=== PATIENT | male | born 1990 | race American Indian/Alaskan Native ===

== ENCOUNTER 2017-07-30 06:48 | Inpatient (IN) | payer OTHER ==
[2017-07-30 07:54] LABS: Hematocrit 25.9 % (35.5-45.6); Hemoglobin 8.1 gm/dl (11.8-15.2); Mean Corpuscular HGB Conc 31 % (32-34); Platelet Count 467 K/mm3 (140-440); Red Blood Count 3.79 M/mm3 (3.65-5.03)
[2017-07-30 07:55] LABS: Mean Corpuscular Volume 68 fl (84-94)
[2017-07-30 07:56] LABS: Mean Corpuscular Hemoglobin 22 pg (28-32); Red Cell Distribution Width 23.8 % (13.2-15.2)
[2017-07-30] MEDS ORDERED: NACL 0.9% 1000 ML 1,000 ML IV ONE ×3 (08:15→10:41)
[2017-07-30] MEDS ORDERED: VANCOMYCIN VIAL IV ONE (08:16)
[2017-07-30] MEDS ORDERED: TYLENOL PO ONE (08:16)
[2017-07-30 08:20] LABS: Alanine Aminotransferase 73 units/L (7-56); Albumin 1.9 g/dL (3.9-5); BUN/Creatinine Ratio 10; Blood Urea Nitrogen 4 mg/dL (9-20); Calcium 7.2 mg/dL (8.4-10.2); Hemolysis Index 25
--- NOTE | 2017-07-30 08:43 | XRay Report ---
AP CHEST: HISTORY: Fever AP view of the chest demonstrates a normal mediastinal and cardiac contour with clear lungs and normal bony and soft tissue structures. IMPRESSION: Unremarkable AP chest.
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
[2017-07-30] MEDS ORDERED: VANCOMYCIN PHARMACY TO DOSE IV SCH (09:00)
[2017-07-30 09:23] LABS: Band Neutrophils # (Manual) 1.2 K/mm3; Basophils % (Manual) 0 % (0.0-1.8); Eosinophils % (Manual) 0 % (0.0-4.3); Total Cells Counted 100
[2017-07-30 09:29] LABS: Anisocytosis 1+; Hypochromasia 1+; Target Cells 2+
[2017-07-30 09:30] LABS: Ovalocytes 2+
[2017-07-30] MEDS ORDERED: ZOSYN/NS 4.5GM/100ML 4.5 GM/100 ML VIAL IV ONE (10:00)
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
[2017-07-30] MEDS ORDERED: VANCOMYCIN 750 MG in NACL 0.9% 250ML 250 ML IV ONE (11:00)
[2017-07-30 11:04] LABS: Bacteria,Urine 2+ /HPF (Negative); Bilirubin,Urine NEG (Negative); Blood,Urine MOD (Negative); Color,Urine Yellow (Yellow); Protein,Urine <15 mg/dL mg/dL (Negative); Urobilinogen,Urine < 2.0 mg/dL (<2.0)
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
[2017-07-30] MEDS ORDERED: ZOFRAN IV PRN (12:44)
[2017-07-30] MEDS: NACL 0.9% 1000 ML 1,000 ML IV SCH (13:43)
[2017-07-30] MEDS: PROTONIX PO SCH (14:00)
[2017-07-30] MEDS ORDERED: ZOSYN/NS 4.5GM/100ML 4.5 GM/100 ML VIAL IV SCH (18:00)
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
[2017-07-30] MEDS: NORCO 5/325 PO PRN ×2 (20:28→23:05)
--- NOTE | 2017-07-30 20:37 | Cat Scan Report ---
FINAL REPORT EXAM: CT CHEST W CON HISTORY: sepsis TECHNIQUE: Standard enhanced CT of the chest at 2.5 mm axial increments. Coronal and sagittal reconstruction was also obtained. Contrast: 100 ml Omnipaque 300 given IV PRIORS: None. FINDINGS: The lung parenchyma are expanded and clear with no evidence for parenchymal nodules, infiltrates, vascular congestion, pleural effusion, or pneumothorax. There is no evidence for mediastinal, hilar, or axillary adenopathy. The esophagus is collapsed. The trachea is midline. Cardiovascular structures are within normal limits. Cardiac size and aorta are normal. Images through the lung bases include upper abdomen which show no abnormality of the visualized abdominal viscera. Bony structures show a 1.3 cm focal lucency involving the right pedicle of L1. This has a sclerotic well-defined border suggesting a benign entity. Hypertrophic facet joint changes to the left at L1-L2 are noted. No evidence for bony fracture is seen. IMPRESSION: 1. no acute abnormality identified in the chest. 2. Focal lucency involving the right pedicle of L1 with a well-defined sclerotic border. 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
--- NOTE | 2017-07-30 20:58 | Cat Scan Report ---
FINAL REPORT EXAM: CT ABDOMEN PELVIS W CON HISTORY: sepsis TECHNIQUE: Standard enhanced CT of the abdomen and pelvis. Coronal and sagittal reconstruction was also performed. Delayed imaging through the kidneys and bladder was obtained. Contrast: 100 mL Omnipaque 300 given IV. Oral contrast given PRIORS: None. FINDINGS: In the left femur, there is an intramedullary keyonna and screw in place. Numerous bubbles of air are present around the right hip joint which should be correlated clinically. If the surgery is recent, this may be postsurgical, however, otherwise, it is abnormal and infection should be considered. There is also air in the subcutaneous tissues posterior to the left ischial tuberosity. The underlying bony structure has erosion and cortical destruction suggesting osteomyelitis involving the inferior pubic ramus posteriorly (axial image 81). Findings may be consistent with a decubitus ulcer in this region. No well-defined abscess is seen. There is sclerotic bony deformity involving the posterior right acetabulum and inferior right pubic ramus which has a remote appearance. There is overlying air in the soft tissues and a skin irregularity overlying this region posteriorly. Findings suggest decubitus ulcer probable chronic or healed osteomyelitis of the underlying bony structures. No well-defined abscess is seen. Within the abdomen, the liver, spleen, pancreas, gallbladder, adrenal glands, and kidneys are unremarkable. No evidence for retroperitoneal or pelvic lymphadenopathy is seen. The small bowel loops have normal caliber. Oral contrast given is now seen throughout the colon, therefore excluding small-bowel obstruction. No soft tissue mass or free air is seen within the abdomen or pelvis. Within the pelvis, the bladder is collapsed containing a Chang catheter balloon. However, bladder wall thickness is still abnormal even given the collapsed state, measuring 1.4 cm in thickness. Findings suggest cystitis. The prostate is normal. No evidence for mass or lymphadenopathy is seen in the pelvis. There is a small amount of free low-density fluid in the presacral space. Images through the upper abdomen include the lung bases which are expanded and clear. Bony structures show a focal lucency at the L1 right pedicle. This has a well-defined sclerotic border and measures 1.3 cm in diameter. Its characteristics suggest a benign entity. Hypertrophic facet joint changes are present at the left side of L1-L2. IMPRESSION: 1. Bilateral decubitus ulcers overlying the ischial tuberosities. On the left, there is acute appearing erosion and cortical destruction of the posterior aspect of the left inferior pubic ramus. Findings suggest acute osteomyelitis. There is also air extending into the left hip joint. On the right, the underlying posterior acetabulum and right inferior pubic ramus have heavy sclerotic appearance suggesting a chronic or remote osteomyelitis. 2. Extensive thickening of the urinary bladder wall for which cystitis should be considered
[2017-07-30] MEDS: FLAGYL 500 MG/100 ML 500 MG/100 ML BAG IV SCH (21:30)
[2017-07-30] MEDS: VANCOMYCIN 750 MG in NACL 0.9% 250ML 250 ML IV SCH (22:35)
[2017-07-30] MEDS: MAXIPIME 2 GM in NACL 0.9% 20 ML IV SCH (22:35)
[2017-07-31] MEDS: TYLENOL PO PRN ×2 (00:22→16:46)
[2017-07-31] MEDS: NACL 0.9% 1000 ML 1,000 ML IV SCH ×2 (03:50→16:53)
[2017-07-31] MEDS: MAXIPIME 2 GM in NACL 0.9% 20 ML IV SCH ×3 (06:24→21:43)
[2017-07-31] MEDS: FLAGYL 500 MG/100 ML 500 MG/100 ML BAG IV SCH ×3 (06:24→22:10)
[2017-07-31 06:48] LABS: Hematocrit 23.6 % (35.5-45.6); Hemoglobin 7.4 gm/dl (11.8-15.2); Mean Corpuscular HGB Conc 31 % (32-34); Platelet Count 346 K/mm3 (140-440); Red Blood Count 3.49 M/mm3 (3.65-5.03)
[2017-07-31 06:49] LABS: Mean Corpuscular Hemoglobin 21 pg (28-32); Mean Corpuscular Volume 68 fl (84-94)
[2017-07-31 06:53] LABS: BUN/Creatinine Ratio 13; Blood Urea Nitrogen 4 mg/dL (9-20); Calcium 6.8 mg/dL (8.4-10.2); Hemolysis Index 1
[2017-07-31] MEDS: NORCO 5/325 PO PRN ×3 (08:16→17:46)
[2017-07-31] MEDS: PROTONIX PO SCH (09:39)
[2017-07-31] MEDS: VANCOMYCIN 750 MG in NACL 0.9% 250ML 250 ML IV SCH (11:16)
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
--- NOTE | 2017-07-31 17:14 | Progress Note ---
Assessment and Plan Assessment: 1) Sepsis: still high fever. Etiology most likely ischial decubiti infection. 2) Bilateral ischeal decubiti stage IV: likely infected -CT showed bilateral decubitus ulcers undertlying ischial tuberocites left with osteomyelitis and air extending to the left hip joint and right with chronic versus remote osteomyelitis. Extensive thickened urianry bladder/ 3) GNR bacteremia 4) Bacteriuria: UA very insignificant, Urine cx GNRs x 2 Plan: -surg eval for left ischial decubitus with osteomyelitis and air extending to the left hip joint +/- consider diverting colostomy - chronic wound non healing exposed to feces -follow-up initial blood cultures -repeat blood cx -obtain C-reactive protein (CRP) -continue cefepime and flagyl -add levaquin in view of persistent fever -continue vanco Pt to be seen on Wednesday Thank you for your consultation, will follow up with you. Tova Gorman MD Infectious Diseases Specialist [facility] ([facility] M [phone] O [phone] Subjective Date of service: 07/31/17 Principal diagnosis: sepsis Interval history: Feels the same, sick, still high fever. Microbiology: Blood cultures: 3/2 GNRs 1 of 4 Urine cultures: 3/2 GNRs x 2 Wound cx Gram stain +GPC and GNR Current Antimicrobials: Zosyn 3/2 Vancomycin 3/2 Previous Antimicrobials: Objective - Exam Narrative Exam: General appearance: Alert in NAD, conversant Eyes: anicteric sclerae, moist conjunctivae; no lid-lag; PERRLA HENT: Atraumatic; oropharynx Neck: Trachea midline; supple, no thyromegaly or lymphadenopathy Lungs: CTA CV: RRR, no murmurs Abdomen: Soft, non-tender; no masses or hepatosplenomegaly Extremities: contracted Skin: +susi ischial wounds see wound care note Psych: Appropriate affect, alert and oriented to person, place and time. Neuro: paraplegic Lines: No CVL / PICC - Constitutional Vitals: Vital Signs Temp Pulse Resp BP Pulse Ox 99.6 F 130 H 20 103/54 100 07/31/17 12:48 07/31/17 12:48 07/31/17 12:48 07/31/17 12:48 07/31/17 12:48 Temperature -Last 24 Hours Temperature 99.6 F Temperature 98.2 F Temperature 97.7 F Temperature 102.7 F - Labs CBC & Chem 7: 07/31/17 05:41 07/31/17 05:41 Labs: Abnormal lab results 07/31/17 07/31/17 Range/Units 05:41 05:41 WBC 14.6 H (4.5-11.0) K/mm3 RBC 3.49 L (3.65-5.03) M/mm3 Hgb 7.4 L (11.8-15.2) gm/dl Hct 23.6 L (35.5-45.6) % MCV 68 L (84-94) fl MCH 21 L (28-32) pg MCHC 31 L (32-34) % RDW 23.0 H (13.2-15.2) % Sodium 133 L (137-145) mmol/L Potassium 3.1 L (3.6-5.0) mmol/L BUN 4 L (9-20) mg/dL Creatinine 0.3 L (0.8-1.5) mg/dL Glucose 102 H (75-100) mg/dL Calcium 6.8 L (8.4-10.2) mg/dL
[2017-07-31] MEDS: LEVAQUIN 750MG/150ML 750 MG/150 ML BAG IV SCH (17:47)
[2017-07-31] MEDS ORDERED: NACL 0.9% 1000 ML 1,000 ML IV ONE (21:20)
[2017-07-31] MEDS: MORPHINE IV PRN (21:39)
[2017-07-31] MEDS ORDERED: LOPRESSOR IV ONE (22:11)
[2017-07-31] MEDS: VANCOMYCIN/0.45 NS 1 GM/250 ML 1 GM/250 ML BAG IV SCH (22:54)
[2017-08-01] MEDS: NORCO 5/325 PO PRN ×2 (01:02→22:08)
[2017-08-01] MEDS: TYLENOL PO PRN ×3 (01:03→20:58)
[2017-08-01] MEDS: FLAGYL 500 MG/100 ML 500 MG/100 ML BAG IV SCH ×4 (01:43→20:59)
[2017-08-01] MEDS: NACL 0.9% 1000 ML 1,000 ML IV SCH ×2 (02:56→12:40)
[2017-08-01] MEDS: MAXIPIME 2 GM in NACL 0.9% 20 ML IV SCH ×3 (05:31→20:59)
[2017-08-01] MEDS: MORPHINE IV PRN (05:31)
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
[2017-08-01 08:36] LABS: BUN/Creatinine Ratio 15; Blood Urea Nitrogen 6 mg/dL (9-20); Calcium 6.5 mg/dL (8.4-10.2); Hemolysis Index 31
[2017-08-01] MEDS ORDERED: TYLENOL PR PRN (09:44)
[2017-08-01 10:09] LABS: Hematocrit 22.9 % (35.5-45.6); Hemoglobin 7.1 gm/dl (11.8-15.2); Mean Corpuscular HGB Conc 31 % (32-34); Mean Corpuscular Hemoglobin 21 pg (28-32); Mean Corpuscular Volume 69 fl (84-94); Red Blood Count 3.31 M/mm3 (3.65-5.03); Red Cell Distribution Width 26.9 % (13.2-15.2)
[2017-08-01] MEDS: PROTONIX PO SCH (10:09)
[2017-08-01 10:52] LABS: Platelet Count 302 K/mm3 (140-440)
[2017-08-01] MEDS: VANCOMYCIN/0.45 NS 1 GM/250 ML 1 GM/250 ML BAG IV SCH ×2 (12:42→22:09)
[2017-08-01] MEDS ORDERED: NACL 0.9% 500 ML 500 ML IV SCH (13:22)
[2017-08-01] MEDS ORDERED: DIPRIVAN 10 MG/ML IV ONE (14:43)
[2017-08-01] MEDS ORDERED: DECADRON ONE (14:44)
[2017-08-01] MEDS ORDERED: SUBLIMAZE ONE (14:44)
[2017-08-01] MEDS ORDERED: VERSED ONE (14:44)
[2017-08-01] MEDS ORDERED: ZOFRAN ONE (14:44)
[2017-08-01] MEDS ORDERED: ROBINUL ONE ×2 (14:44→16:34)
[2017-08-01] MEDS ORDERED: XYLOCAINE CARDIAC IV ONE (14:44)
--- NOTE | 2017-08-01 15:06 | Anesthesia Day of Surgery ---
Anesthesia Day of Surgery - Day of Surgery Patient Examined: Yes Patient H&P Reviewed: Yes Patient is NPO: Yes
--- NOTE | 2017-08-01 15:06 | Anesthesia Consultation ---
Anesthesia Consult and Med Hx Date of service: 08/01/17 - Airway Anesthetic Teeth Evaluation: Good ROM Head & Neck: Adequate Mental/Hyoid Distance: Adequate Mallampati Class: Class II Intubation Access Assessment: Probably Good - Pulmonary Exam CTA: Yes - Cardiac Exam Cardiac Exam: RRR - Pre-Operative Health Status ASA Pre-Surgery Classification: ASA3 Proposed Anesthetic Plan: General (prone position. ETT. no succinylsholine) - Central Nervous System Hx Seizures: Yes
[2017-08-01] MEDS ORDERED: NACL 0.9% 500 ML 500 ML ONE (15:11)
[2017-08-01] MEDS ORDERED: KEPPRA 500 MG/NS 0.82% 100 ML 500 MG/100 ML BAG IV ONE (15:24)
[2017-08-01] MEDS ORDERED: NACL 0.9% IR ONE (15:31)
[2017-08-01] MEDS ORDERED: ALBUTEIN IV ONE (15:54)
--- NOTE | 2017-08-01 16:32 | Post Operative Note ---
Pre-op diagnosis: Left hip abscess Post-op diagnosis: same Findings: I&D of left hip abscess Anesthesia: AMEENAA Surgeon: SIMRAN CERVANTES Estimated blood loss: minimal Pathology: list (Gram stain and C&S) Specimen disposition: to lab Condition: stable Disposition: PACU
[2017-08-01] MEDS ORDERED: NEOSTIGMINE ONE (16:34)
[2017-08-01] MEDS ORDERED: NEO SYNEPHRINE/NS Syringe(OR USE) IV ONE (16:34)
[2017-08-01] MEDS: LEVAQUIN 750MG/150ML 750 MG/150 ML BAG IV SCH (16:55)
--- NOTE | 2017-08-01 17:02 | Post Anesthesia Evaluation ---
- Post Anesthesia Evaluation Patient Participated: Yes Airway Patent: Yes Stable Respiratory Function: Yes Nausea/Vomiting: No Temp > 96.8F: Yes Pain Manageable: Yes Adequeate Hydration: Yes Anesthesia Complications: No Block Receding Appropriately: Not Applicable Patient on Ventilator: No
[2017-08-01] MEDS ORDERED: BREVIBLOC IV ONE (17:05)
[2017-08-02] MEDS: NORCO 5/325 PO PRN ×3 (05:18→13:21)
[2017-08-02] MEDS: MAXIPIME 2 GM in NACL 0.9% 20 ML IV SCH ×3 (05:20→20:57)
[2017-08-02] MEDS: FLAGYL 500 MG/100 ML 500 MG/100 ML BAG IV SCH ×3 (05:21→21:07)
[2017-08-02] MEDS: NACL 0.9% 1000 ML 1,000 ML IV SCH ×2 (05:31→20:57)
[2017-08-02 06:57] LABS: Hematocrit 30.6 % (35.5-45.6); Hemoglobin 9.8 gm/dl (11.8-15.2); Mean Corpuscular HGB Conc 32 % (32-34); Mean Corpuscular Volume 71 fl (84-94); Platelet Count 107 K/mm3 (140-440)
[2017-08-02 07:02] LABS: BUN/Creatinine Ratio 23; Blood Urea Nitrogen 7 mg/dL (9-20); Calcium 6.7 mg/dL (8.4-10.2); Hemolysis Index 1
[2017-08-02 07:08] LABS: Mean Corpuscular Hemoglobin 23 pg (28-32); Red Cell Distribution Width 24.8 % (13.2-15.2)
[2017-08-02] MEDS: PROTONIX PO SCH (09:16)
[2017-08-02] MEDS: VANCOMYCIN/0.45 NS 1 GM/250 ML 1 GM/250 ML BAG IV SCH (10:03)
--- NOTE | 2017-08-02 11:11 | Progress Note ---
Assessment and Plan Assessment: 1) Sepsis: still high fever. Etiology most likely ischial decubiti infection. 2) Bilateral ischeal decubiti stage IV: likely infected L>R with left ischial osteomyelitis and air extending to the left hip joint -CT showed bilateral decubitus ulcers undertlying ischial tuberocites left with osteomyelitis and air extending to the left hip joint and right with chronic versus remote osteomyelitis. Extensive thickened urianry bladder/ -S/P OR I+D on 08/01 -CRP=25 3) E coli bacteremia - likely from left ischial wound > UTI 4) Bacteriuria: UA very insignificant, Urine cx GNRs x 2 Plan: -consider diverting colostomy - chronic wound non healing exposed to feces - will ask surgery -follow-up reepat blood cultures -continue cefepime and flagyl -stop levaquin and vanco Thank you for your consultation, will follow up with you. Tova Gorman MD Infectious Diseases Specialist [facility] ([facility]) M [phone] O [phone] Subjective Date of service: 08/02/17 Principal diagnosis: sepsis Interval history: Feels better, no fever tmax 98.5 Microbiology: Blood cultures: 3/2 Ecoli 1 of 4 3/4 ngtd Urine cultures: 3/2 E coli x 2 Wound cx GNRs x 3 Current Antimicrobials: Zosyn 3/2 Vancomycin 3/2 Previous Antimicrobials: Objective - Exam Narrative Exam: General appearance: Alert in NAD, conversant Eyes: anicteric sclerae, moist conjunctivae; no lid-lag; PERRLA HENT: Atraumatic; oropharynx Neck: Trachea midline; supple, no thyromegaly or lymphadenopathy Lungs: CTA CV: RRR, no murmurs Abdomen: Soft, non-tender; no masses or hepatosplenomegaly Extremities: contracted Skin: +susi ischial wounds see wound care note Psych: Appropriate affect, alert and oriented to person, place and time. Neuro: paraplegic Lines: No CVL / PICC - Constitutional Vitals: Vital Signs Temp Pulse Resp BP Pulse Ox 97.4 F L 98 H 17 95/62 100 08/02/17 04:18 08/02/17 04:18 08/02/17 04:18 08/02/17 04:18 03/05/18 04:18 Temperature -Last 24 Hours Temperature 97.4 F Temperature 98.5 F Temperature 98.5 F Temperature 97.4 F Temperature 97.8 F Temperature 98 F Temperature 98 F Temperature 97.8 F Temperature 97.6 F Temperature 97.8 F Temperature 98.4 F Temperature 99.4 F - Labs CBC & Chem 7: 08/02/17 06:15 08/02/17 06:15 Labs: Abnormal lab results 08/01/17 08/02/17 08/02/17 Range/Units 13:18 06:15 06:15 WBC 18.9 H (4.5-11.0) K/mm3 Hgb 9.8 L (11.8-15.2) gm/dl Hct 30.6 L D (35.5-45.6) % MCV 71 L (84-94) fl MCH 23 L (28-32) pg RDW 24.8 H (13.2-15.2) % Plt Count 107 L (140-440) K/mm3 Potassium 3.5 L (3.6-5.0) mmol/L Carbon Dioxide 21 L (22-30) mmol/L BUN 7 L (9-20) mg/dL Creatinine 0.3 L (0.8-1.5) mg/dL Glucose 146 H (75-100) mg/dL Calcium 6.7 L (8.4-10.2) mg/dL Crossmatch See Detail
[2017-08-02] MEDS ORDERED: K-DUR PO ONE (15:19)
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
[2017-08-02] MEDS: MORPHINE IV PRN ×2 (16:30→22:24)
[2017-08-03] MEDS: NORCO 5/325 PO PRN ×4 (02:25→22:00)
[2017-08-03] MEDS: MORPHINE IV PRN ×3 (04:19→19:59)
[2017-08-03] MEDS: FLAGYL 500 MG/100 ML 500 MG/100 ML BAG IV SCH ×3 (05:23→21:51)
[2017-08-03] MEDS: MAXIPIME 2 GM in NACL 0.9% 20 ML IV SCH ×3 (05:23→21:50)
[2017-08-03 07:13] LABS: Hemoglobin 8.7 gm/dl (11.8-15.2); Mean Corpuscular HGB Conc 32 % (32-34); Mean Corpuscular Volume 71 fl (84-94); Red Blood Count 3.81 M/mm3 (3.65-5.03)
[2017-08-03 07:16] LABS: Mean Corpuscular Hemoglobin 23 pg (28-32); Red Cell Distribution Width 24.7 % (13.2-15.2)
[2017-08-03 07:17] LABS: Platelet Count 57 K/mm3 (140-440)
[2017-08-03 08:03] LABS: BUN/Creatinine Ratio 23; Blood Urea Nitrogen 7 mg/dL (9-20); Calcium 6.6 mg/dL (8.4-10.2); Hemolysis Index 2
[2017-08-03] MEDS: PROTONIX PO SCH (09:00)
--- NOTE | 2017-08-03 09:34 | Progress Note ---
Assessment and Plan Assessment: 1) Sepsis: still leukocytosis, fever resolved. Etiology most likely ischial decubiti infection. 2) Bilateral ischeal decubiti stage IV: likely infected L>R with left ischial osteomyelitis and air extending to the left hip joint -CT showed bilateral decubitus ulcers undertlying ischial tuberocites left with osteomyelitis and air extending to the left hip joint and right with chronic versus remote osteomyelitis. Extensive thickened urianry bladder/ -S/P OR I+D on 08/01 -CRP=25 3) E coli bacteremia - likely from left ischial wound > UTI 4) Bacteriuria with a chronic indwelling cath: UA very insignificant, Urine cx GNRs x 2 Plan: -consider diverting colostomy - chronic wound non healing exposed to feces - will ask surgery -continue cefepime and flagyl - day 5 -place a PICC line -needs IV abx for 6 weeks - will order preliminary - cefepime 2 g IV q8h total 6 weeks until 09/11/17. May need to be adjusted once cultures available. Thank you for your consultation, will follow up with you. Tova Gorman MD Infectious Diseases Specialist [facility] [phone] O [phone] Subjective Date of service: 08/03/17 Principal diagnosis: sepsis Interval history: Feels better, no fever Microbiology: Blood cultures: 3/2 Ecoli 1 of 4 3/4 ngtd Urine cultures: 3/2 E coli x 2 Wound cx GNRs x 3 Current Antimicrobials: cefepime 3/2 flagyl 3/2 Previous Antimicrobials: Vancomycin 3/2 Zosyn 3/2 Objective - Exam Narrative Exam: General appearance: Alert in NAD, conversant Eyes: anicteric sclerae, moist conjunctivae; no lid-lag; PERRLA HENT: Atraumatic; oropharynx Neck: Trachea midline; supple, no thyromegaly or lymphadenopathy Lungs: CTA CV: RRR, no murmurs Abdomen: Soft, non-tender; no masses or hepatosplenomegaly Extremities: contracted Skin: +susi ischial wounds see wound care note Psych: Appropriate affect, alert and oriented to person, place and time. Neuro: paraplegic Lines: No CVL / PICC - Constitutional Vitals: Vital Signs Temp Pulse Resp BP Pulse Ox 98.5 F 89 20 105/68 100 08/03/17 07:16 08/03/17 07:16 08/03/17 07:16 08/03/17 07:16 08/03/17 07:16 Temperature -Last 24 Hours Temperature 98.5 F Temperature 97.5 F Temperature 98.4 F Temperature 98.7 F Temperature 99.6 F Temperature 98.1 F - Labs CBC & Chem 7: 08/03/17 04:51 08/03/17 04:51 Labs: Abnormal lab results 08/01/17 08/03/17 08/03/17 Range/Units 13:18 04:51 04:51 WBC 17.0 H (4.5-11.0) K/mm3 Hgb 8.7 L (11.8-15.2) gm/dl Hct 27.0 L (35.5-45.6) % MCV 71 L (84-94) fl MCH 23 L (28-32) pg RDW 24.7 H (13.2-15.2) % Plt Count 57 L (140-440) K/mm3 Potassium 3.4 L (3.6-5.0) mmol/L BUN 7 L (9-20) mg/dL Creatinine 0.3 L (0.8-1.5) mg/dL Calcium 6.6 L (8.4-10.2) mg/dL Crossmatch See Detail
--- NOTE | 2017-08-03 11:13 | Progress Note ---
Assessment and Plan Assessment and plan: Sepsis. Etiology most likely ischial decubiti infection. Bilateral ischeal decubiti stage IV. 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 Extensive thickened urianry bladder. Pt. S /P OR I+D on 08/01. Consider diverting colostomy - chronic wound non healing exposed to feces. Surgery eval. E coli bacteremia - likely from left ischial wound > UTI Bacteriuria with a chronic indwelling cath: UA very insignificant, Urine cx GNRs x 2 Disposition. LTAC eval. I d/w CM History Interval history: No new issues Hospitalist Physical - Constitutional Vitals: Temp Pulse Resp BP Pulse Ox 98.5 F 89 20 105/68 100 08/03/17 07:16 08/03/17 07:16 08/03/17 07:16 08/03/17 07:16 08/03/17 07:16 General appearance: Present: no acute distress, well-nourished - EENT Eyes: Present: PERRL, EOM intact ENT: hearing intact, clear oral mucosa, dentition normal - Neck Neck: Present: supple, normal ROM - Respiratory Respiratory effort: normal Respiratory: bilateral: CTA - Cardiovascular Rhythm: regular Heart Sounds: Present: S1 & S2. Absent: gallop, rub - Extremities Extremities: no ischemia, No edema, Full ROM - Abdominal General gastrointestinal: soft, non-tender, non-distended, normal bowel sounds - Integumentary Integumentary: Present: clear, warm, dry - Neurologic Neurologic: CNII-XII intact, moves all extremities Results - Labs CBC & Chem 7: 08/03/17 04:51 08/03/17 04:51 Labs: Laboratory Last Values WBC 17.0 K/mm3 (4.5-11.0) H 08/03/17 04:51 RBC 3.81 M/mm3 (3.65-5.03) 08/03/17 04:51 Hgb 8.7 gm/dl (11.8-15.2) L 08/03/17 04:51 Hct 27.0 % (35.5-45.6) L 08/03/17 04:51 MCV 71 fl (84-94) L 08/03/17 04:51 MCH 23 pg (28-32) L 08/03/17 04:51 MCHC 32 % (32-34) 08/03/17 04:51 RDW 24.7 % (13.2-15.2) H 08/03/17 04:51 Plt Count 57 K/mm3 (140-440) L 08/03/17 04:51 Add Manual Diff Complete 07/30/17 07:31 Total Counted 100 07/30/17 07:31 Seg Neuts % (Manual) 89.0 % (40.0-70.0) H 07/30/17 07:31 Band Neutrophils % 8.0 % 07/30/17 07:31 Lymphocytes % (Manual) 1.0 % (13.4-35.0) L 07/30/17 07:31 Reactive Lymphs % (Man) 0 % 07/30/17 07:31 Monocytes % (Manual) 1.0 % (0.0-7.3) 07/30/17 07:31 Eosinophils % (Manual) 0 % (0.0-4.3) 07/30/17 07:31 Basophils % (Manual) 0 % (0.0-1.8) 07/30/17 07:31 Metamyelocytes % 1.0 % 07/30/17 07:31 Myelocytes % 0 % 07/30/17 07:31 Promyelocytes % 0 % 07/30/17 07:31 Blast Cells % 0 % 07/30/17 07:31 Nucleated RBC % Not Reportable 07/30/17 07:31 Seg Neutrophils # Man 12.9 K/mm3 (1.8-7.7) H 07/30/17 07:31 Band Neutrophils # 1.2 K/mm3 07/30/17 07:31 Lymphocytes # (Manual) 0.1 K/mm3 (1.2-5.4) L 07/30/17 07:31 Abs React Lymphs (Man) 0.0 K/mm3 07/30/17 07:31 Monocytes # (Manual) 0.1 K/mm3 (0.0-0.8) 07/30/17 07:31 Eosinophils # (Manual) 0.0 K/mm3 (0.0-0.4) 07/30/17 07:31 Basophils # (Manual) 0.0 K/mm3 (0.0-0.1) 07/30/17 07:31 Metamyelocytes # 0.1 K/mm3 07/30/17 07:31 Myelocytes # 0.0 K/mm3 07/30/17 07:31 Promyelocytes # 0.0 K/mm3 07/30/17 07:31 Blast Cells # 0.0 K/mm3 07/30/17 07:31 WBC Morphology Not Reportable 07/30/17 07:31 Hypersegmented Neuts Not Reportable 07/30/17 07:31 Hyposegmented Neuts Not Reportable 07/30/17 07:31 Hypogranular Neuts Not Reportable 07/30/17 07:31 Smudge Cells Not Reportable 07/30/17 07:31 Toxic Granulation Not Reportable 07/30/17 07:31 Toxic Vacuolation Not Reportable 07/30/17 07:31 Dohle Bodies Not Reportable 07/30/17 07:31 Pelger-Huet Anomaly Not Reportable 07/30/17 07:31 Shantel Rods Not Reportable 07/30/17 07:31 Platelet Estimate Appears normal 07/30/17 07:31 Clumped Platelets Not Reportable 07/30/17 07:31 Plt Clumps, EDTA Not Reportable 07/30/17 07:31 Large Platelets Not Reportable 07/30/17 07:31 Giant Platelets Not Reportable 07/30/17 07:31 Platelet Satelliting Not Reportable 07/30/17 07:31 Plt Morphology Comment Not Reportable 07/30/17 07:31 RBC Morphology Not Reportable 07/30/17 07:31 Dimorphic RBCs Not Reportable 07/30/17 07:31 Polychromasia Not Reportable 07/30/17 07:31 Hypochromasia 1+ 07/30/17 07:31 Poikilocytosis Not Reportable 07/30/17 07:31 Anisocytosis 1+ 07/30/17 07:31 Microcytosis 1+ 07/30/17 07:31 Macrocytosis Not Reportable 07/30/17 07:31 Spherocytes Not Reportable 07/30/17 07:31 Pappenheimer Bodies Not Reportable 07/30/17 07:31 Sickle Cells Not Reportable 07/30/17 07:31 Target Cells 2+ 07/30/17 07:31 Tear Drop Cells Not Reportable 07/30/17 07:31 Ovalocytes 2+ 07/30/17 07:31 Helmet Cells Not Reportable 07/30/17 07:31 De La Rosa-[place] Bodies Not Reportable 07/30/17 07:31 [place] Rings Not Reportable 07/30/17 07:31 Hailey Cells Not Reportable 07/30/17 07:31 Bite Cells Not Reportable 07/30/17 07:31 Crenated Cell Not Reportable 07/30/17 07:31 Elliptocytes Few 07/30/17 07:31 Acanthocytes (Spur) Not Reportable 07/30/17 07:31 Rouleaux Not Reportable 07/30/17 07:31 Hemoglobin C Crystals Not Reportable 07/30/17 07:31 Schistocytes Not Reportable 07/30/17 07:31 Malaria parasites Not Reportable 07/30/17 07:31 Cyril Bodies Not Reportable 07/30/17 07:31 Hem Pathologist Commnt No 07/30/17 07:31 Sodium 140 mmol/L (137-145) 08/03/17 04:51 Potassium 3.4 mmol/L (3.6-5.0) L 08/03/17 04:51 Chloride 105.7 mmol/L (98-107) 08/03/17 04:51 Carbon Dioxide 23 mmol/L (22-30) 08/03/17 04:51 Anion Gap 15 mmol/L 08/03/17 04:51 BUN 7 mg/dL (9-20) L 08/03/17 04:51 Creatinine 0.3 mg/dL (0.8-1.5) L 08/03/17 04:51 Estimated GFR > 60 ml/min 08/03/17 04:51 BUN/Creatinine Ratio 23 % 08/03/17 04:51 Glucose 81 mg/dL (75-100) 08/03/17 04:51 Lactic Acid 1.50 mmol/L (0.7-2.0) 07/30/17 13:52 Calcium 6.6 mg/dL (8.4-10.2) L 08/03/17 04:51 Total Bilirubin 0.70 mg/dL (0.1-1.2) 07/30/17 07:31 AST 83 units/L (5-40) H 07/30/17 07:31 ALT 73 units/L (7-56) H 07/30/17 07:31 Alkaline Phosphatase 198 units/L (35-129) H 07/30/17 07:31 C-Reactive Protein 25.20 mg/dL (0.00-1.30) H 07/31/17 18:20 Total Protein 6.8 g/dL (6.3-8.2) 07/30/17 07:31 Albumin 1.9 g/dL (3.9-5) L 07/30/17 07:31 Albumin/Globulin Ratio 0.4 % 07/30/17 07:31 Urine Color Yellow (Yellow) 07/30/17 10:43 Urine Turbidity Clear (Clear) 07/30/17 10:43 Urine pH 6.0 (5.0-7.0) 07/30/17 10:43 Ur Specific [place] 1.003 (1.003-1.030) 07/30/17 10:43 Urine Protein <15 mg/dl mg/dL (Negative) 07/30/17 10:43 Urine Glucose (UA) Neg mg/dL (Negative) 07/30/17 10:43 Urine Ketones Neg mg/dL (Negative) 07/30/17 10:43 Urine Blood Mod (Negative) 07/30/17 10:43 Urine Nitrite Neg (Negative) 07/30/17 10:43 Urine Bilirubin Neg (Negative) 07/30/17 10:43 Urine Urobilinogen < 2.0 mg/dL (<2.0) 07/30/17 10:43 Ur Leukocyte Esterase Sm (Negative) 07/30/17 10:43 Urine WBC (Auto) 3.0 /HPF (0.0-6.0) 07/30/17 10:43 Urine RBC (Auto) 1.0 /HPF (0.0-6.0) 07/30/17 10:43 U Epithel Cells (Auto) 1.0 /HPF (0-13.0) 07/30/17 10:43 Urine Bacteria (Auto) 2+ /HPF (Negative) 07/30/17 10:43 Urine Yeast (Budding) Few /HPF 07/30/17 10:43 Blood Type B POSITIVE 08/01/17 13:18 Antibody Screen Negative 08/01/17 13:18 Crossmatch See Detail 08/01/17 13:18
--- NOTE | 2017-08-03 14:11 | Progress Note ---
Assessment and Plan - Patient Problems (1) Decubitus ulcers Current Visit: Yes Status: Acute Plan to address problem: 1) Wound vac, left hip placed. Discussed the possibility of a diverting colostomy with the pt. He will think it over but seems very hesitant to proceed. Subjective Date of service: 08/03/17 Patient Reports: Positive: no new complaints Objective Vital Signs - 12hr 08/03/17 08/03/17 03:49 07:16 Temperature 97.5 F L 98.5 F Pulse Rate 92 H 89 Respiratory 18 20 Rate Blood Pressure 101/60 105/68 O2 Sat by Pulse 98 100 Oximetry - Labs 08/03/17 04:51 08/03/17 04:51 Diabetes panel 08/03/17 Range/Units 04:51 Sodium 140 (137-145) mmol/L Potassium 3.4 L (3.6-5.0) mmol/L Chloride 105.7 (98-107) mmol/L Carbon Dioxide 23 (22-30) mmol/L BUN 7 L (9-20) mg/dL Creatinine 0.3 L (0.8-1.5) mg/dL Glucose 81 (75-100) mg/dL Calcium 6.6 L (8.4-10.2) mg/dL Calcium panel 08/03/17 Range/Units 04:51 Calcium 6.6 L (8.4-10.2) mg/dL Pituitary panel 08/03/17 Range/Units 04:51 Sodium 140 (137-145) mmol/L Potassium 3.4 L (3.6-5.0) mmol/L Chloride 105.7 (98-107) mmol/L Carbon Dioxide 23 (22-30) mmol/L BUN 7 L (9-20) mg/dL Creatinine 0.3 L (0.8-1.5) mg/dL Glucose 81 (75-100) mg/dL Calcium 6.6 L (8.4-10.2) mg/dL Adrenal panel 08/03/17 Range/Units 04:51 Sodium 140 (137-145) mmol/L Potassium 3.4 L (3.6-5.0) mmol/L Chloride 105.7 (98-107) mmol/L Carbon Dioxide 23 (22-30) mmol/L BUN 7 L (9-20) mg/dL Creatinine 0.3 L (0.8-1.5) mg/dL Glucose 81 (75-100) mg/dL Calcium 6.6 L (8.4-10.2) mg/dL
[2017-08-03] MEDS: NACL 0.9% 1000 ML 1,000 ML IV SCH (15:06)
[2017-08-03] MEDS: TYLENOL PO PRN (15:07)
--- NOTE | 2017-08-03 19:26 | XRay Report ---
FINAL REPORT EXAM: XR CHEST 1V AP HISTORY: R arm PICC placement TECHNIQUE: Frontal chest x-ray. PRIORS: None currently available. FINDINGS: Cardiac silhouette is within normal limits. Ill-defined opacity in the right lung base. No pneumothorax. Left lung is clear. No pneumothorax or effusion. No consolidation. There are no suspicious osseous lesions. Right PICC line tip is present within SVC. IMPRESSION: Nonspecific opacity at the right lateral lung base. Differential diagnosis includes effusion with adjacent subsegmental atelectasis and or infiltrate.
[2017-08-04] MEDS: MORPHINE IV PRN ×4 (02:55→21:16)
[2017-08-04] MEDS: NORCO 5/325 PO PRN ×4 (04:51→23:49)
[2017-08-04] MEDS: TYLENOL PO PRN (04:51)
[2017-08-04] MEDS: MAXIPIME 2 GM in NACL 0.9% 20 ML IV SCH ×3 (04:52→21:17)
[2017-08-04] MEDS: FLAGYL 500 MG/100 ML 500 MG/100 ML BAG IV SCH ×3 (05:00→23:40)
[2017-08-04 06:57] LABS: Hematocrit 27.3 % (35.5-45.6); Hemoglobin 8.8 gm/dl (11.8-15.2); Mean Corpuscular HGB Conc 32 % (32-34); Mean Corpuscular Volume 70 fl (84-94); Red Blood Count 3.88 M/mm3 (3.65-5.03)
[2017-08-04 06:59] LABS: Mean Corpuscular Hemoglobin 23 pg (28-32); Red Cell Distribution Width 25.3 % (13.2-15.2)
[2017-08-04 07:22] LABS: BUN/Creatinine Ratio 30; Blood Urea Nitrogen 6 mg/dL (9-20); Calcium 6.4 mg/dL (8.4-10.2); Hemolysis Index 5
[2017-08-04 07:42] LABS: Basophils % (Manual) 0 % (0.0-1.8); Total Cells Counted 100
[2017-08-04 07:43] LABS: RBC Morphology Normal
--- NOTE | 2017-08-04 09:58 | Progress Note ---
Assessment and Plan Assessment and plan: Sepsis. Etiology most likely ischial decubiti infection. PT. still with spiking temps Bilateral ischeal decubiti stage IV. 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 Extensive thickened urianry bladder. Pt. S /P OR I+D on 08/01. Consider diverting colostomy - chronic wound non healing exposed to feces. Surgery eval. E coli bacteremia - likely from left ischial wound > UTI Ecoli UTI. Cont. Abx. ID following Disposition. LTAC eval. I d/w CM History Interval history: No new issues Hospitalist Physical - Constitutional Vitals: Temp Pulse Resp BP Pulse Ox 99.2 F 100 H 20 105/52 98 08/04/17 07:31 08/04/17 07:31 08/04/17 07:31 08/04/17 07:31 08/04/17 07:31 General appearance: Present: no acute distress, well-nourished - EENT Eyes: Present: PERRL, EOM intact ENT: hearing intact, clear oral mucosa, dentition normal - Neck Neck: Present: supple, normal ROM - Respiratory Respiratory effort: normal Respiratory: bilateral: CTA - Cardiovascular Rhythm: regular Heart Sounds: Present: S1 & S2. Absent: gallop, rub - Extremities Extremities: no ischemia, No edema, Full ROM - Abdominal General gastrointestinal: soft, non-tender, non-distended, normal bowel sounds - Integumentary Integumentary: Present: clear (large sacral wound), warm, dry - Neurologic Neurologic: CNII-XII intact, moves all extremities Results - Labs CBC & Chem 7: 08/04/17 06:52 08/04/17 06:52 Labs: Laboratory Last Values WBC 19.3 K/mm3 (4.5-11.0) H 08/04/17 06:52 RBC 3.88 M/mm3 (3.65-5.03) 08/04/17 06:52 Hgb 8.8 gm/dl (11.8-15.2) L 08/04/17 06:52 Hct 27.3 % (35.5-45.6) L 08/04/17 06:52 MCV 70 fl (84-94) L 08/04/17 06:52 MCH 23 pg (28-32) L 08/04/17 06:52 MCHC 32 % (32-34) 08/04/17 06:52 RDW 25.3 % (13.2-15.2) H 08/04/17 06:52 Plt Count 57 K/mm3 (140-440) L 08/03/17 04:51 Add Manual Diff Complete 08/04/17 06:52 Total Counted 100 08/04/17 06:52 Seg Neuts % (Manual) 89.0 % (40.0-70.0) H 08/04/17 06:52 Band Neutrophils % 0 % 08/04/17 06:52 Lymphocytes % (Manual) 5.0 % (13.4-35.0) L 08/04/17 06:52 Reactive Lymphs % (Man) 0 % 08/04/17 06:52 Monocytes % (Manual) 5.0 % (0.0-7.3) 08/04/17 06:52 Eosinophils % (Manual) 1.0 % (0.0-4.3) 08/04/17 06:52 Basophils % (Manual) 0 % (0.0-1.8) 08/04/17 06:52 Metamyelocytes % 0 % 08/04/17 06:52 Myelocytes % 0 % 08/04/17 06:52 Promyelocytes % 0 % 08/04/17 06:52 Blast Cells % 0 % 08/04/17 06:52 Nucleated RBC % Not Reportable 08/04/17 06:52 Seg Neutrophils # Man 17.2 K/mm3 (1.8-7.7) H 08/04/17 06:52 Band Neutrophils # 0.0 K/mm3 08/04/17 06:52 Lymphocytes # (Manual) 1.0 K/mm3 (1.2-5.4) L 08/04/17 06:52 Abs React Lymphs (Man) 0.0 K/mm3 08/04/17 06:52 Monocytes # (Manual) 1.0 K/mm3 (0.0-0.8) H 08/04/17 06:52 Eosinophils # (Manual) 0.2 K/mm3 (0.0-0.4) 08/04/17 06:52 Basophils # (Manual) 0.0 K/mm3 (0.0-0.1) 08/04/17 06:52 Metamyelocytes # 0.0 K/mm3 08/04/17 06:52 Myelocytes # 0.0 K/mm3 08/04/17 06:52 Promyelocytes # 0.0 K/mm3 08/04/17 06:52 Blast Cells # 0.0 K/mm3 08/04/17 06:52 WBC Morphology Not Reportable 08/04/17 06:52 Hypersegmented Neuts Not Reportable 08/04/17 06:52 Hyposegmented Neuts Not Reportable 08/04/17 06:52 Hypogranular Neuts Not Reportable 08/04/17 06:52 Smudge Cells Not Reportable 08/04/17 06:52 Toxic Granulation Not Reportable 08/04/17 06:52 Toxic Vacuolation Not Reportable 08/04/17 06:52 Dohle Bodies Not Reportable 08/04/17 06:52 Pelger-Huet Anomaly Not Reportable 08/04/17 06:52 Shantel Rods Not Reportable 08/04/17 06:52 Platelet Estimate Not Reportable 08/04/17 06:52 Clumped Platelets Not Reportable 08/04/17 06:52 Plt Clumps, EDTA Not Reportable 08/04/17 06:52 Large Platelets Not Reportable 08/04/17 06:52 Giant Platelets Not Reportable 08/04/17 06:52 Platelet Satelliting Not Reportable 08/04/17 06:52 Plt Morphology Comment Not Reportable 08/04/17 06:52 RBC Morphology Normal 08/04/17 06:52 Dimorphic RBCs Not Reportable 08/04/17 06:52 Polychromasia Not Reportable 08/04/17 06:52 Hypochromasia Not Reportable 08/04/17 06:52 Poikilocytosis Not Reportable 08/04/17 06:52 Anisocytosis Not Reportable 08/04/17 06:52 Microcytosis Not Reportable 08/04/17 06:52 Macrocytosis Not Reportable 08/04/17 06:52 Spherocytes Not Reportable 08/04/17 06:52 Pappenheimer Bodies Not Reportable 08/04/17 06:52 Sickle Cells Not Reportable 08/04/17 06:52 Target Cells Not Reportable 08/04/17 06:52 Tear Drop Cells Not Reportable 08/04/17 06:52 Ovalocytes Not Reportable 08/04/17 06:52 Helmet Cells Not Reportable 08/04/17 06:52 De La [place] Bodies Not Reportable 08/04/17 06:52 [place] Rings Not Reportable 08/04/17 06:52 Hailey Cells Not Reportable 08/04/17 06:52 Bite Cells Not Reportable 08/04/17 06:52 Crenated Cell Not Reportable 08/04/17 06:52 Elliptocytes Not Reportable 08/04/17 06:52 Acanthocytes (Spur) Not Reportable 08/04/17 06:52 Rouleaux Not Reportable 08/04/17 06:52 Hemoglobin C Crystals Not Reportable 08/04/17 06:52 Schistocytes Not Reportable 08/04/17 06:52 Malaria parasites Not Reportable 08/04/17 06:52 Cyril Bodies Not Reportable 08/04/17 06:52 Hem Pathologist Commnt No 08/04/17 06:52 Sodium 130 mmol/L (137-145) L D 08/04/17 06:52 Potassium 3.1 mmol/L (3.6-5.0) L 08/04/17 06:52 Chloride 98.3 mmol/L (98-107) 08/04/17 06:52 Carbon Dioxide 25 mmol/L (22-30) 08/04/17 06:52 Anion Gap 10 mmol/L 08/04/17 06:52 BUN 6 mg/dL (9-20) L 08/04/17 06:52 Creatinine 0.2 mg/dL (0.8-1.5) L 08/04/17 06:52 Estimated GFR > 60 ml/min 08/04/17 06:52 BUN/Creatinine Ratio 30 % 08/04/17 06:52 Glucose 94 mg/dL (75-100) 08/04/17 06:52 Lactic Acid 1.50 mmol/L (0.7-2.0) 07/30/17 13:52 Calcium 6.4 mg/dL (8.4-10.2) L 08/04/17 06:52 Total Bilirubin 0.70 mg/dL (0.1-1.2) 07/30/17 07:31 AST 83 units/L (5-40) H 07/30/17 07:31 ALT 73 units/L (7-56) H 07/30/17 07:31 Alkaline Phosphatase 198 units/L (35-129) H 07/30/17 07:31 C-Reactive Protein 25.20 mg/dL (0.00-1.30) H 07/31/17 18:20 Total Protein 6.8 g/dL (6.3-8.2) 07/30/17 07:31 Albumin 1.9 g/dL (3.9-5) L 07/30/17 07:31 Albumin/Globulin Ratio 0.4 % 07/30/17 07:31 Urine Color Yellow (Yellow) 07/30/17 10:43 Urine Turbidity Clear (Clear) 07/30/17 10:43 Urine pH 6.0 (5.0-7.0) 07/30/17 10:43 Ur Specific [place] 1.003 (1.003-1.030) 07/30/17 10:43 Urine Protein <15 mg/dl mg/dL (Negative) 07/30/17 10:43 Urine Glucose (UA) Neg mg/dL (Negative) 07/30/17 10:43 Urine Ketones Neg mg/dL (Negative) 07/30/17 10:43 Urine Blood Mod (Negative) 07/30/17 10:43 Urine Nitrite Neg (Negative) 07/30/17 10:43 Urine Bilirubin Neg (Negative) 07/30/17 10:43 Urine Urobilinogen < 2.0 mg/dL (<2.0) 07/30/17 10:43 Ur Leukocyte Esterase Sm (Negative) 07/30/17 10:43 Urine WBC (Auto) 3.0 /HPF (0.0-6.0) 07/30/17 10:43 Urine RBC (Auto) 1.0 /HPF (0.0-6.0) 07/30/17 10:43 U Epithel Cells (Auto) 1.0 /HPF (0-13.0) 07/30/17 10:43 Urine Bacteria (Auto) 2+ /HPF (Negative) 07/30/17 10:43 Urine Yeast (Budding) Few /HPF 07/30/17 10:43 Blood Type B POSITIVE 08/01/17 13:18 Antibody Screen Negative 08/01/17 13:18 Crossmatch See Detail 08/01/17 13:18
[2017-08-04] MEDS: PROTONIX PO SCH (10:09)
[2017-08-04] MEDS: NACL 0.9% 1000 ML 1,000 ML IV SCH (10:09)
[2017-08-04] MEDS ORDERED: VANCOMYCIN VIAL 1,000 MG in NACL 0.9% 100 ML IV SCH (11:00)
[2017-08-04] MEDS ORDERED: VANCOMYCIN PHARMACY TO DOSE IV SCH (11:00)
[2017-08-04] MEDS ORDERED: VANCOMYCIN/0.45 NS 1 GM/250 ML 1 GM/250 ML BAG IV ONE (12:00)
[2017-08-04 12:12] LABS: Platelet Count 92 K/mm3 (140-440)
[2017-08-04] MEDS: COLACE PO SCH ×2 (13:03→21:15)
--- NOTE | 2017-08-04 14:34 | Progress Note ---
Assessment and Plan Assessment: 1) Sepsis: still leukocytosis and high fever. Etiology most likely ischial decubiti infection. 2) Bilateral ischeal decubiti stage IV: likely infected L>R with left ischial osteomyelitis and air extending to the left hip joint -CT showed bilateral decubitus ulcers undertlying ischial tuberocites left with osteomyelitis and air extending to the left hip joint and right with chronic versus remote osteomyelitis. Extensive thickened urianry bladder/ -S/P OR I+D on 08/01 +MRSA, E coli and GNRs -CRP=25 3) E coli bacteremia - likely from left ischial wound > UTI. Repeat blood cx still positive 4) Bacteriuria with a chronic indwelling cath: UA very insignificant, Urine cx GNRs x 2 Plan: -repeat blood cultures -add vancomycin -contact isolation due to MRSA --continue cefepime and flagyl - day 5 -patient to consider consider diverting colostomy -upon discharge will do cefepime 2 g IV q8h and vancomycin 1 g IV q12h total 6 weeks until 09/11/17. -monitor fever and leukocytosis -bowel care Thank you for your consultation, will follow up with you. Tova Gorman MD Infectious Diseases Specialist [facility] ([facility] M [phone] O [phone] Subjective Date of service: 08/04/17 Principal diagnosis: sepsis Interval history: Feels sick, nauseated and c/o abd distention and pain. No BMs in 48h. Still Fever 101.5. Microbiology: Blood cultures: 3/2 Ecoli of 08 31/ E coli Urine cultures: 3/2 E coli x 2 Wound cx Ecoli, GNR and MRSA Current Antimicrobials: cefepime 3/2 flagyl 3/2 Previous Antimicrobials: Vancomycin 3/2 Zosyn 3/2 Objective - Exam Narrative Exam: General appearance: Alert in NAD, conversant Eyes: anicteric sclerae, moist conjunctivae; no lid-lag; PERRLA HENT: Atraumatic; oropharynx Neck: Trachea midline; supple, no thyromegaly or lymphadenopathy Lungs: CTA CV: RRR, no murmurs Abdomen: Soft, non-tender; no masses or hepatosplenomegaly Extremities: contracted Skin: +susi ischial with wound VAC Psych: Appropriate affect, alert and oriented to person, place and time. Neuro: paraplegic Lines: No CVL / PICC - Constitutional Vitals: Vital Signs Temp Pulse Resp BP Pulse Ox 99.2 F 100 H 20 105/52 98 08/04/17 07:31 08/04/17 07:31 08/04/17 07:31 08/04/17 07:31 08/04/17 07:31 Temperature -Last 24 Hours Temperature 99.2 F Temperature 101.5 F Temperature 100.2 F Temperature 100.0 F Temperature 100.5 F Temperature 102.8 F - Labs CBC & Chem 7: 08/04/17 06:52 08/04/17 06:52 Labs: Abnormal lab results 08/04/17 08/04/17 Range/Units 06:52 06:52 WBC 19.3 H (4.5-11.0) K/mm3 Hgb 8.8 L (11.8-15.2) gm/dl Hct 27.3 L (35.5-45.6) % MCV 70 L (84-94) fl MCH 23 L (28-32) pg RDW 25.3 H (13.2-15.2) % Plt Count 92 L (140-440) K/mm3 Seg Neuts % (Manual) 89.0 H (40.0-70.0) % Lymphocytes % (Manual) 5.0 L (13.4-35.0) % Seg Neutrophils # Man 17.2 H (1.8-7.7) K/mm3 Lymphocytes # (Manual) 1.0 L (1.2-5.4) K/mm3 Monocytes # (Manual) 1.0 H (0.0-0.8) K/mm3 Sodium 130 L D (137-145) mmol/L Potassium 3.1 L (3.6-5.0) mmol/L BUN 6 L (9-20) mg/dL Creatinine 0.2 L (0.8-1.5) mg/dL Calcium 6.4 L (8.4-10.2) mg/dL
[2017-08-04] MEDS: VANCOMYCIN/0.45 NS 1 GM/250 ML 1 GM/250 ML BAG IV SCH (23:41)
[2017-08-05] MEDS: TYLENOL PO PRN ×2 (01:09→22:51)
[2017-08-05] MEDS: NACL 0.9% 1000 ML 1,000 ML IV SCH ×2 (03:13→21:45)
[2017-08-05] MEDS: MORPHINE IV PRN ×4 (04:38→22:52)
[2017-08-05 06:50] LABS: Hematocrit 24.5 % (35.5-45.6); Hemoglobin 7.9 gm/dl (11.8-15.2); Mean Corpuscular HGB Conc 32 % (32-34); Mean Corpuscular Volume 70 fl (84-94); Platelet Count 132 K/mm3 (140-440)
[2017-08-05 06:51] LABS: Mean Corpuscular Hemoglobin 23 pg (28-32)
[2017-08-05 06:52] LABS: Red Cell Distribution Width 25.2 % (13.2-15.2)
[2017-08-05 07:05] LABS: BUN/Creatinine Ratio 25; Blood Urea Nitrogen 5 mg/dL (9-20); Calcium 6.4 mg/dL (8.4-10.2); Hemolysis Index 0
[2017-08-05] MEDS: FLAGYL 500 MG/100 ML 500 MG/100 ML BAG IV SCH ×3 (07:46→21:45)
[2017-08-05] MEDS: VANCOMYCIN/0.45 NS 1 GM/250 ML 1 GM/250 ML BAG IV SCH ×3 (07:49→22:56)
[2017-08-05] MEDS: MAXIPIME 2 GM in NACL 0.9% 20 ML IV SCH ×3 (07:52→21:44)
[2017-08-05] MEDS: NORCO 5/325 PO PRN ×2 (08:11→19:01)
--- NOTE | 2017-08-05 09:05 | Progress Note ---
Assessment and Plan Assessment and plan: Sepsis. Etiology most likely ischial decubiti infection. PT. still with spiking temps Bilateral ischeal decubiti stage IV. 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 Extensive thickened urianry bladder. Pt. S /P OR I+D on 08/01. Consider diverting colostomy - chronic wound non healing exposed to feces. Surgery eval. E coli bacteremia - likely from left ischial wound > UTI Ecoli UTI. Cont. Abx. ID following Constipation. Miralax x 1 History Interval history: No new issues Hospitalist Physical - Constitutional Vitals: Temp Pulse Resp BP Pulse Ox 99.1 F 135 H 20 111/69 100 08/05/17 07:22 08/05/17 07:22 08/05/17 07:22 08/05/17 07:22 08/05/17 07:22 General appearance: Present: no acute distress, well-nourished - EENT Eyes: Present: PERRL, EOM intact ENT: hearing intact, clear oral mucosa, dentition normal - Neck Neck: Present: supple, normal ROM - Respiratory Respiratory effort: normal Respiratory: bilateral: CTA - Cardiovascular Rhythm: regular Heart Sounds: Present: S1 & S2. Absent: gallop, rub - Extremities Extremities: no ischemia, No edema, Full ROM - Abdominal General gastrointestinal: soft, non-tender, non-distended, normal bowel sounds - Integumentary Integumentary: Present: clear, warm, dry - Neurologic Neurologic: CNII-XII intact, moves all extremities Results - Labs CBC & Chem 7: 08/05/17 06:00 08/05/17 06:00 Labs: Laboratory Last Values WBC 27.0 K/mm3 (4.5-11.0) H 08/05/17 06:00 RBC 3.50 M/mm3 (3.65-5.03) L 08/05/17 06:00 Hgb 7.9 gm/dl (11.8-15.2) L 08/05/17 06:00 Hct 24.5 % (35.5-45.6) L 08/05/17 06:00 MCV 70 fl (84-94) L 08/05/17 06:00 MCH 23 pg (28-32) L 08/05/17 06:00 MCHC 32 % (32-34) 08/05/17 06:00 RDW 25.2 % (13.2-15.2) H 08/05/17 06:00 Plt Count 132 K/mm3 (140-440) L 08/05/17 06:00 Add Manual Diff Complete 08/04/17 06:52 Total Counted 100 08/04/17 06:52 Seg Neuts % (Manual) 89.0 % (40.0-70.0) H 08/04/17 06:52 Band Neutrophils % 0 % 08/04/17 06:52 Lymphocytes % (Manual) 5.0 % (13.4-35.0) L 08/04/17 06:52 Reactive Lymphs % (Man) 0 % 08/04/17 06:52 Monocytes % (Manual) 5.0 % (0.0-7.3) 08/04/17 06:52 Eosinophils % (Manual) 1.0 % (0.0-4.3) 08/04/17 06:52 Basophils % (Manual) 0 % (0.0-1.8) 08/04/17 06:52 Metamyelocytes % 0 % 08/04/17 06:52 Myelocytes % 0 % 08/04/17 06:52 Promyelocytes % 0 % 08/04/17 06:52 Blast Cells % 0 % 08/04/17 06:52 Nucleated RBC % Not Reportable 08/04/17 06:52 Seg Neutrophils # Man 17.2 K/mm3 (1.8-7.7) H 08/04/17 06:52 Band Neutrophils # 0.0 K/mm3 08/04/17 06:52 Lymphocytes # (Manual) 1.0 K/mm3 (1.2-5.4) L 08/04/17 06:52 Abs React Lymphs (Man) 0.0 K/mm3 08/04/17 06:52 Monocytes # (Manual) 1.0 K/mm3 (0.0-0.8) H 08/04/17 06:52 Eosinophils # (Manual) 0.2 K/mm3 (0.0-0.4) 08/04/17 06:52 Basophils # (Manual) 0.0 K/mm3 (0.0-0.1) 08/04/17 06:52 Metamyelocytes # 0.0 K/mm3 08/04/17 06:52 Myelocytes # 0.0 K/mm3 08/04/17 06:52 Promyelocytes # 0.0 K/mm3 08/04/17 06:52 Blast Cells # 0.0 K/mm3 08/04/17 06:52 WBC Morphology Not Reportable 08/04/17 06:52 Hypersegmented Neuts Not Reportable 08/04/17 06:52 Hyposegmented Neuts Not Reportable 08/04/17 06:52 Hypogranular Neuts Not Reportable 08/04/17 06:52 Smudge Cells Not Reportable 08/04/17 06:52 Toxic Granulation Not Reportable 08/04/17 06:52 Toxic Vacuolation Not Reportable 08/04/17 06:52 Dohle Bodies Not Reportable 08/04/17 06:52 Pelger-Huet Anomaly Not Reportable 08/04/17 06:52 Shantel Rods Not Reportable 08/04/17 06:52 Platelet Estimate Not Reportable 08/04/17 06:52 Clumped Platelets Not Reportable 08/04/17 06:52 Plt Clumps, EDTA Not Reportable 08/04/17 06:52 Large Platelets Not Reportable 08/04/17 06:52 Giant Platelets Not Reportable 08/04/17 06:52 Platelet Satelliting Not Reportable 08/04/17 06:52 Plt Morphology Comment Not Reportable 08/04/17 06:52 RBC Morphology Normal 08/04/17 06:52 Dimorphic RBCs Not Reportable 08/04/17 06:52 Polychromasia Not Reportable 08/04/17 06:52 Hypochromasia Not Reportable 08/04/17 06:52 Poikilocytosis Not Reportable 08/04/17 06:52 Anisocytosis Not Reportable 08/04/17 06:52 Microcytosis Not Reportable 08/04/17 06:52 Macrocytosis Not Reportable 08/04/17 06:52 Spherocytes Not Reportable 08/04/17 06:52 Pappenheimer Bodies Not Reportable 08/04/17 06:52 Sickle Cells Not Reportable 08/04/17 06:52 Target Cells Not Reportable 08/04/17 06:52 Tear Drop Cells Not Reportable 08/04/17 06:52 Ovalocytes Not Reportable 08/04/17 06:52 Helmet Cells Not Reportable 08/04/17 06:52 [place]-Nadine Bodies Not Reportable 08/04/17 06:52 [place] Rings Not Reportable 08/04/17 06:52 [place] Cells Not Reportable 08/04/17 06:52 Bite Cells Not Reportable 08/04/17 06:52 Crenated Cell Not Reportable 08/04/17 06:52 Elliptocytes Not Reportable 08/04/17 06:52 Acanthocytes (Spur) Not Reportable 08/04/17 06:52 Rouleaux Not Reportable 08/04/17 06:52 Hemoglobin C Crystals Not Reportable 08/04/17 06:52 Schistocytes Not Reportable 08/04/17 06:52 Malaria parasites Not Reportable 08/04/17 06:52 Cyril Bodies Not Reportable 08/04/17 06:52 Hem Pathologist Commnt No 08/04/17 06:52 Sodium 136 mmol/L (137-145) L 08/05/17 06:00 Potassium 3.3 mmol/L (3.6-5.0) L 08/05/17 06:00 Chloride 97.7 mmol/L (98-107) L 08/05/17 06:00 Carbon Dioxide 26 mmol/L (22-30) 08/05/17 06:00 Anion Gap 16 mmol/L 08/05/17 06:00 BUN 5 mg/dL (9-20) L 08/05/17 06:00 Creatinine 0.2 mg/dL (0.8-1.5) L 08/05/17 06:00 Estimated GFR > 60 ml/min 08/05/17 06:00 BUN/Creatinine Ratio 25 % 08/05/17 06:00 Glucose 94 mg/dL (75-100) 08/05/17 06:00 Lactic Acid 1.50 mmol/L (0.7-2.0) 07/30/17 13:52 Calcium 6.4 mg/dL (8.4-10.2) L 08/05/17 06:00 Total Bilirubin 0.70 mg/dL (0.1-1.2) 07/30/17 07:31 AST 83 units/L (5-40) H 07/30/17 07:31 ALT 73 units/L (7-56) H 07/30/17 07:31 Alkaline Phosphatase 198 units/L (35-129) H 07/30/17 07:31 C-Reactive Protein 25.20 mg/dL (0.00-1.30) H 07/31/17 18:20 Total Protein 6.8 g/dL (6.3-8.2) 07/30/17 07:31 Albumin 1.9 g/dL (3.9-5) L 07/30/17 07:31 Albumin/Globulin Ratio 0.4 % 07/30/17 07:31 Urine Color Yellow (Yellow) 07/30/17 10:43 Urine Turbidity Clear (Clear) 07/30/17 10:43 Urine pH 6.0 (5.0-7.0) 07/30/17 10:43 Ur Specific [place] 1.003 (1.003-1.030) 07/30/17 10:43 Urine Protein <15 mg/dl mg/dL (Negative) 07/30/17 10:43 Urine Glucose (UA) Neg mg/dL (Negative) 07/30/17 10:43 Urine Ketones Neg mg/dL (Negative) 07/30/17 10:43 Urine Blood Mod (Negative) 07/30/17 10:43 Urine Nitrite Neg (Negative) 07/30/17 10:43 Urine Bilirubin Neg (Negative) 07/30/17 10:43 Urine Urobilinogen < 2.0 mg/dL (<2.0) 07/30/17 10:43 Ur Leukocyte Esterase Sm (Negative) 07/30/17 10:43 Urine WBC (Auto) 3.0 /HPF (0.0-6.0) 07/30/17 10:43 Urine RBC (Auto) 1.0 /HPF (0.0-6.0) 07/30/17 10:43 U Epithel Cells (Auto) 1.0 /HPF (0-13.0) 07/30/17 10:43 Urine Bacteria (Auto) 2+ /HPF (Negative) 07/30/17 10:43 Urine Yeast (Budding) Few /HPF 07/30/17 10:43 Blood Type B POSITIVE 08/01/17 13:18 Antibody Screen Negative 08/01/17 13:18 Crossmatch See Detail 08/01/17 13:18
[2017-08-05] MEDS ORDERED: MIRALAX 3350 PO NR (10:00)
[2017-08-05] MEDS: COLACE PO SCH ×3 (10:43→21:53)
[2017-08-05] MEDS: PROTONIX PO SCH (10:43)
--- NOTE | 2017-08-05 17:30 | Progress Note ---
Assessment and Plan Assessment: 1) Sepsis: worsening leukocytosis and high fever. Etiology most likely ischial decubiti infection. 2) Bilateral ischeal decubiti stage IV: likely infected L>R with left ischial osteomyelitis and air extending to the left hip joint -CT showed bilateral decubitus ulcers undertlying ischial tuberocites left with osteomyelitis and air extending to the left hip joint and right with chronic versus remote osteomyelitis. Extensive thickened urianry bladder/ -S/P OR I+D on 08/01 +MRSA, E coli and GNRs -CRP=25 3) E coli bacteremia - likely from left ischial wound > UTI. Repeat blood cx still positive 4) Bacteriuria with a chronic indwelling cath: UA very insignificant, Urine cx GNRs x 2 5) ? constipation Plan: -repeat CT abd pelvic in view of distended abdomen and worsening leukocytosis -f/u repeat blood cultures -continue vancomycin - day 2, cefepime and flagyl - day 6 -contact isolation due to MRSA -patient to consider consider diverting colostomy -upon discharge will do cefepime 2 g IV q8h and vancomycin 1 g IV q12h total 6 weeks until 09/11/17. -monitor fever and leukocytosis -bowel care Thank you for your consultation, will follow up with you. Tova Gorman MD Infectious Diseases Specialist [facility] ([facility] M [phone] O [phone] Subjective Date of service: 08/05/17 Principal diagnosis: sepsis Interval history: Feels sick, nauseated and still c/o abd distention and pain. Reports No BMs in 48h. Still Fever 100.9 Microbiology: Blood cultures: 3/2 Ecoli 1 of 4 MDR resistant to cipro/tetracycline/bactrim 3/4 E coli Urine cultures: 3/2 E coli x 2 Wound cx MDR Ecoli, MDR Morganella and MRSA Current Antimicrobials: cefepime 3/2 flagyl 3/2 vanco 3/7 Previous Antimicrobials: Vancomycin 3/2 Zosyn 3/2 Objective - Exam Narrative Exam: General appearance: Alert in NAD, conversant Eyes: anicteric sclerae, moist conjunctivae; no lid-lag; PERRLA HENT: Atraumatic; oropharynx Neck: Trachea midline; supple, no thyromegaly or lymphadenopathy Lungs: CTA CV: RRR, no murmurs Abdomen: Soft, tender diffusely, distended Extremities: contracted Skin: +susi ischial with wound VAC Psych: Appropriate affect, alert and oriented to person, place and time. Neuro: paraplegic Lines: No CVL / PICC - Constitutional Vitals: Vital Signs Temp Pulse Resp BP Pulse Ox 99.9 F H 115 H 20 93/41 96 08/05/17 15:12 08/05/17 15:12 08/05/17 15:12 08/05/17 15:12 08/05/17 15:12 Temperature -Last 24 Hours Temperature 99.9 F Temperature 99.1 F Temperature 99.3 F Temperature 100.9 F - Labs CBC & Chem 7: 08/05/17 06:00 08/05/17 06:00 Labs: Abnormal lab results 08/05/17 08/05/17 Range/Units 06:00 06:00 WBC 27.0 H (4.5-11.0) K/mm3 RBC 3.50 L (3.65-5.03) M/mm3 Hgb 7.9 L (11.8-15.2) gm/dl Hct 24.5 L (35.5-45.6) % MCV 70 L (84-94) fl MCH 23 L (28-32) pg RDW 25.2 H (13.2-15.2) % Plt Count 132 L (140-440) K/mm3 Sodium 136 L (137-145) mmol/L Potassium 3.3 L (3.6-5.0) mmol/L Chloride 97.7 L (98-107) mmol/L BUN 5 L (9-20) mg/dL Creatinine 0.2 L (0.8-1.5) mg/dL Calcium 6.4 L (8.4-10.2) mg/dL
[2017-08-05] MEDS ORDERED: CITRATE OF MAGNESIA PO ONE (18:30)
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
[2017-08-06] MEDS: NORCO 5/325 PO PRN ×3 (02:22→23:24)
[2017-08-06] MEDS: MAXIPIME 2 GM in NACL 0.9% 20 ML IV SCH ×3 (05:50→21:29)
[2017-08-06] MEDS: VANCOMYCIN/0.45 NS 1 GM/250 ML 1 GM/250 ML BAG IV SCH (05:51)
[2017-08-06] MEDS: FLAGYL 500 MG/100 ML 500 MG/100 ML BAG IV SCH ×3 (05:54→22:30)
[2017-08-06] MEDS: MORPHINE IV PRN ×5 (06:50→23:29)
[2017-08-06] MEDS: COLACE PO SCH ×2 (09:29→22:03)
[2017-08-06] MEDS: PROTONIX PO SCH (09:29)
--- NOTE | 2017-08-06 09:54 | Progress Note ---
Assessment and Plan Assessment: 1) Sepsis: worsening leukocytosis and fever. Etiology most likely ischial decubiti infection complicated with left hip septic arthritis. 2) Bilateral ischeal decubiti stage IV: likely infected L>R with left ischial osteomyelitis and air extending to the left hip joint -CT showed bilateral decubitus ulcers undertlying ischial tuberocites left with osteomyelitis and air extending to the left hip joint and right with chronic versus remote osteomyelitis. Extensive thickened urianry bladder/ -Repeat CT left septic hip with large amount of gas and fluid on the left hip -S/P OR I+D on 08/01 +MRSA, E coli and GNRs -CRP=25 3) E coli bacteremia - likely from left ischial wound > UTI. Repeat blood cx still positive 4) Bacteriuria with a chronic indwelling cath: UA very insignificant, Urine cx GNRs x 2 5) ? constipation Plan: -urgent ortho eval - needs OR left hip debridement - discussed with Dr Lopez -f/u repeat blood cultures -continue vancomycin - day 3, cefepime and flagyl - day 7 -contact isolation due to MRSA -patient to consider consider diverting colostomy -monitor fever and leukocytosis -bowel care I am rounding on Wednesday Thank you for your consultation, will follow up with you. Tova Gorman MD Infectious Diseases Specialist [facility] ([facility] M [phone] O [phone] Subjective Date of service: 08/06/17 Principal diagnosis: sepsis Interval history: Feels sick, nauseated and still c/o abd distention and pain. Reports No BMs in 48h. Still Fever 100.7 Microbiology: Blood cultures: 3/2 Ecoli 1 of 4 MDR resistant to cipro/tetracycline/bactrim 3/4 E coli Urine cultures: 3/2 E coli x 2 Wound cx MDR Ecoli, MDR Morganella and MRSA Current Antimicrobials: cefepime 3/2 flagyl 3/2 vanco 3/7 Previous Antimicrobials: Vancomycin 3/2 Zosyn 3/2 Objective - Exam Narrative Exam: General appearance: Alert in NAD, conversant Eyes: anicteric sclerae, moist conjunctivae; no lid-lag; PERRLA HENT: Atraumatic; oropharynx Neck: Trachea midline; supple, no thyromegaly or lymphadenopathy Lungs: CTA CV: RRR, no murmurs Abdomen: Soft, tender diffusely, distended Extremities: contracted Skin: +susi ischial with wound VAC Psych: Appropriate affect, alert and oriented to person, place and time. Neuro: paraplegic Lines: No CVL / PICC - Constitutional Vitals: Vital Signs Temp Pulse Resp BP Pulse Ox 99.3 F 105 H 18 100/34 99 08/06/17 07:24 08/06/17 07:24 08/06/17 07:24 08/06/17 07:24 08/06/17 07:24 Temperature -Last 24 Hours Temperature 99.3 F Temperature 100.1 F Temperature 100.7 F Temperature 99.6 F Temperature 101.8 F Temperature 99.9 F - Labs CBC & Chem 7: 08/05/17 06:00 08/05/17 06:00
[2017-08-06 11:12] LABS: Hematocrit 23.4 % (35.5-45.6); Hemoglobin 7.5 gm/dl (11.8-15.2); Mean Corpuscular HGB Conc 32 % (32-34); Mean Corpuscular Volume 71 fl (84-94); Platelet Count 253 K/mm3 (140-440); Red Blood Count 3.32 M/mm3 (3.65-5.03)
[2017-08-06 11:15] LABS: Mean Corpuscular Hemoglobin 23 pg (28-32); Red Cell Distribution Width 25.7 % (13.2-15.2)
--- NOTE | 2017-08-06 11:25 | Progress Note ---
Assessment and Plan Assessment and plan: Sepsis. Etiology most likely ischial decubiti infection complicated with left hip septic arthritis.. Patient with persistent fever and tachycardia. Also, patient with worsening leukocytosis. F/u repeat blood cultures, continue vancomycin - day 3, cefepime and flagyl - day 7, contact isolation due to MRSA and consider diverting colostomy Bilateral ischeal decubiti stage IV. 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 Extensive thickened urianry bladder. Pt. S /P OR I+D on 08/01. Consider diverting colostomy - chronic wound non healing exposed to feces. Repeat CT left septic hip with large amount of gas and fluid on the left hip. Orthopedics consultation pending E coli bacteremia - likely from left ischial wound > UTI Ecoli UTI. Cont. Abx. ID following Constipation. Continue medications. History Interval history: Patient with continued fever and tachycardia. Hospitalist Physical - Constitutional Vitals: Temp Pulse Resp BP Pulse Ox 99.3 F 105 H 18 100/34 99 08/06/17 07:24 08/06/17 07:24 08/06/17 07:24 08/06/17 07:24 08/06/17 07:24 General appearance: Present: no acute distress, well-nourished - EENT Eyes: Present: PERRL, EOM intact ENT: hearing intact, clear oral mucosa, dentition normal - Neck Neck: Present: supple, normal ROM - Respiratory Respiratory effort: normal Respiratory: bilateral: CTA - Cardiovascular Rhythm: regular Heart Sounds: Present: S1 & S2. Absent: gallop, rub - Extremities Extremities: no ischemia, No edema, Full ROM - Abdominal General gastrointestinal: soft, non-tender, non-distended, normal bowel sounds - Integumentary Integumentary: Present: clear, warm, dry - Neurologic Neurologic: CNII-XII intact, moves all extremities Results - Labs CBC & Chem 7: 08/06/17 09:05 08/05/17 06:00 Labs: Laboratory Last Values WBC 26.7 K/mm3 (4.5-11.0) H 08/06/17 09:05 RBC 3.32 M/mm3 (3.65-5.03) L 08/06/17 09:05 Hgb 7.5 gm/dl (11.8-15.2) L 08/06/17 09:05 Hct 23.4 % (35.5-45.6) L 08/06/17 09:05 MCV 71 fl (84-94) L 08/06/17 09:05 MCH 23 pg (28-32) L 08/06/17 09:05 MCHC 32 % (32-34) 08/06/17 09:05 RDW 25.7 % (13.2-15.2) H 08/06/17 09:05 Plt Count 253 K/mm3 (140-440) 08/06/17 09:05 Add Manual Diff Complete 08/04/17 06:52 Total Counted 100 08/04/17 06:52 Seg Neuts % (Manual) 89.0 % (40.0-70.0) H 08/04/17 06:52 Band Neutrophils % 0 % 08/04/17 06:52 Lymphocytes % (Manual) 5.0 % (13.4-35.0) L 08/04/17 06:52 Reactive Lymphs % (Man) 0 % 08/04/17 06:52 Monocytes % (Manual) 5.0 % (0.0-7.3) 08/04/17 06:52 Eosinophils % (Manual) 1.0 % (0.0-4.3) 08/04/17 06:52 Basophils % (Manual) 0 % (0.0-1.8) 08/04/17 06:52 Metamyelocytes % 0 % 08/04/17 06:52 Myelocytes % 0 % 08/04/17 06:52 Promyelocytes % 0 % 08/04/17 06:52 Blast Cells % 0 % 08/04/17 06:52 Nucleated RBC % Not Reportable 08/04/17 06:52 Seg Neutrophils # Man 17.2 K/mm3 (1.8-7.7) H 08/04/17 06:52 Band Neutrophils # 0.0 K/mm3 08/04/17 06:52 Lymphocytes # (Manual) 1.0 K/mm3 (1.2-5.4) L 08/04/17 06:52 Abs React Lymphs (Man) 0.0 K/mm3 08/04/17 06:52 Monocytes # (Manual) 1.0 K/mm3 (0.0-0.8) H 08/04/17 06:52 Eosinophils # (Manual) 0.2 K/mm3 (0.0-0.4) 08/04/17 06:52 Basophils # (Manual) 0.0 K/mm3 (0.0-0.1) 08/04/17 06:52 Metamyelocytes # 0.0 K/mm3 08/04/17 06:52 Myelocytes # 0.0 K/mm3 08/04/17 06:52 Promyelocytes # 0.0 K/mm3 08/04/17 06:52 Blast Cells # 0.0 K/mm3 08/04/17 06:52 WBC Morphology Not Reportable 08/04/17 06:52 Hypersegmented Neuts Not Reportable 08/04/17 06:52 Hyposegmented Neuts Not Reportable 08/04/17 06:52 Hypogranular Neuts Not Reportable 08/04/17 06:52 Smudge Cells Not Reportable 08/04/17 06:52 Toxic Granulation Not Reportable 08/04/17 06:52 Toxic Vacuolation Not Reportable 08/04/17 06:52 Dohle Bodies Not Reportable 08/04/17 06:52 Pelger-Huet Anomaly Not Reportable 08/04/17 06:52 Shantel Rods Not Reportable 08/04/17 06:52 Platelet Estimate Not Reportable 08/04/17 06:52 Clumped Platelets Not Reportable 08/04/17 06:52 Plt Clumps, EDTA Not Reportable 08/04/17 06:52 Large Platelets Not Reportable 08/04/17 06:52 Giant Platelets Not Reportable 08/04/17 06:52 Platelet Satelliting Not Reportable 08/04/17 06:52 Plt Morphology Comment Not Reportable 08/04/17 06:52 RBC Morphology Normal 08/04/17 06:52 Dimorphic RBCs Not Reportable 08/04/17 06:52 Polychromasia Not Reportable 08/04/17 06:52 Hypochromasia Not Reportable 08/04/17 06:52 Poikilocytosis Not Reportable 08/04/17 06:52 Anisocytosis Not Reportable 08/04/17 06:52 Microcytosis Not Reportable 08/04/17 06:52 Macrocytosis Not Reportable 08/04/17 06:52 Spherocytes Not Reportable 08/04/17 06:52 Pappenheimer Bodies Not Reportable 08/04/17 06:52 Sickle Cells Not Reportable 08/04/17 06:52 Target Cells Not Reportable 08/04/17 06:52 Tear Drop Cells Not Reportable 08/04/17 06:52 Ovalocytes Not Reportable 08/04/17 06:52 Helmet Cells Not Reportable 08/04/17 06:52 [place] Bodies Not Reportable 08/04/17 06:52 Occidental Rings Not Reportable 08/04/17 06:52 Hailey Cells Not Reportable 08/04/17 06:52 Bite Cells Not Reportable 08/04/17 06:52 Crenated Cell Not Reportable 08/04/17 06:52 Elliptocytes Not Reportable 08/04/17 06:52 Acanthocytes (Spur) Not Reportable 08/04/17 06:52 Rouleaux Not Reportable 08/04/17 06:52 Hemoglobin C Crystals Not Reportable 08/04/17 06:52 Schistocytes Not Reportable 08/04/17 06:52 Malaria parasites Not Reportable 08/04/17 06:52 Cyril Bodies Not Reportable 08/04/17 06:52 Hem Pathologist Commnt No 08/04/17 06:52 Sodium 136 mmol/L (137-145) L 08/05/17 06:00 Potassium 3.3 mmol/L (3.6-5.0) L 08/05/17 06:00 Chloride 97.7 mmol/L (98-107) L 08/05/17 06:00 Carbon Dioxide 26 mmol/L (22-30) 08/05/17 06:00 Anion Gap 16 mmol/L 08/05/17 06:00 BUN 5 mg/dL (9-20) L 08/05/17 06:00 Creatinine 0.2 mg/dL (0.8-1.5) L 08/05/17 06:00 Estimated GFR > 60 ml/min 08/05/17 06:00 BUN/Creatinine Ratio 25 % 08/05/17 06:00 Glucose 94 mg/dL (75-100) 08/05/17 06:00 Lactic Acid 1.50 mmol/L (0.7-2.0) 07/30/17 13:52 Calcium 6.4 mg/dL (8.4-10.2) L 08/05/17 06:00 Total Bilirubin 0.70 mg/dL (0.1-1.2) 07/30/17 07:31 AST 83 units/L (5-40) H 07/30/17 07:31 ALT 73 units/L (7-56) H 07/30/17 07:31 Alkaline Phosphatase 198 units/L (35-129) H 07/30/17 07:31 C-Reactive Protein 25.20 mg/dL (0.00-1.30) H 07/31/17 18:20 Total Protein 6.8 g/dL (6.3-8.2) 07/30/17 07:31 Albumin 1.9 g/dL (3.9-5) L 07/30/17 07:31 Albumin/Globulin Ratio 0.4 % 07/30/17 07:31 Urine Color Yellow (Yellow) 07/30/17 10:43 Urine Turbidity Clear (Clear) 07/30/17 10:43 Urine pH 6.0 (5.0-7.0) 07/30/17 10:43 Ur Specific Ida 1.003 (1.003-1.030) 07/30/17 10:43 Urine Protein <15 mg/dl mg/dL (Negative) 07/30/17 10:43 Urine Glucose (UA) Neg mg/dL (Negative) 07/30/17 10:43 Urine Ketones Neg mg/dL (Negative) 07/30/17 10:43 Urine Blood Mod (Negative) 07/30/17 10:43 Urine Nitrite Neg (Negative) 07/30/17 10:43 Urine Bilirubin Neg (Negative) 07/30/17 10:43 Urine Urobilinogen < 2.0 mg/dL (<2.0) 07/30/17 10:43 Ur Leukocyte Esterase Sm (Negative) 07/30/17 10:43 Urine WBC (Auto) 3.0 /HPF (0.0-6.0) 07/30/17 10:43 Urine RBC (Auto) 1.0 /HPF (0.0-6.0) 07/30/17 10:43 U Epithel Cells (Auto) 1.0 /HPF (0-13.0) 07/30/17 10:43 Urine Bacteria (Auto) 2+ /HPF (Negative) 07/30/17 10:43 Urine Yeast (Budding) Few /HPF 07/30/17 10:43 Vancomycin Trough 10.3 ug/mL (5.0-20.0) 08/06/17 05:45 Blood Type B POSITIVE 08/01/17 13:18 Antibody Screen Negative 08/01/17 13:18 Crossmatch See Detail 08/01/17 13:18
[2017-08-06 11:35] LABS: BUN/Creatinine Ratio 20; Blood Urea Nitrogen 6 mg/dL (9-20); Calcium 6.6 mg/dL (8.4-10.2); Hemolysis Index 0
[2017-08-06 13:06] LABS: Basophils % (Manual) 0 % (0.0-1.8); Eosinophils % (Manual) 0 % (0.0-4.3); RBC Morphology Normal; Total Cells Counted 100
[2017-08-06] MEDS: VANCOMYCIN 1,250 MG in NACL 0.9% 250ML 250 ML IV SCH ×2 (14:02→23:00)
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
[2017-08-06] MEDS: NACL 0.9% 1000 ML 1,000 ML IV SCH (19:18)
[2017-08-06] MEDS ORDERED: MOTRIN PO PRN (20:13)
[2017-08-07 00:45] VITALS: BP 104/55
== END 2017-08-07 00:43 | disposition home or self-care (01) | DRG 853 ==
LOC: ED 06:48 → EEVIPCON 09:04 → 3A 09:04
PROVIDERS: ADMIT Internal Medicine; ATTEND Hospitalist
PROC: 0QB30ZZ Excision of Left Pelvic Bone, Open Approach (ICD-10-PCS; principal; 2017-08-01)
PROC: 30233N1 Transfusion of Nonautologous Red Blood Cells into Peripheral Vein, Percutaneous Approach (ICD-10-PCS; 2017-08-01)
DX: A41.51 Sepsis due to Escherichia coli [E. coli] (principal); E43 Unspecified severe protein-calorie malnutrition; L89.894 Pressure ulcer of other site, stage 4; G82.20 Paraplegia, unspecified; E87.1 Hypo-osmolality and hyponatremia; L02.416 Cutaneous abscess of left lower limb; M00.9 Pyogenic arthritis, unspecified; M86.152 Other acute osteomyelitis, left femur; M86.151 Other acute osteomyelitis, right femur; R65.20 Severe sepsis without septic shock; Z96.0 Presence of urogenital implants; E86.0 Dehydration; G40.909 Epilepsy, unspecified, not intractable, without status epilepticus; Z68.25 Body mass index [BMI] 25.0-25.9, adult; D64.9 Anemia, unspecified; L89.159 Pressure ulcer of sacral region, unspecified stage
CPT/HCPCS: 36415; 71045; 71260; 74177; 80048; 80053; 80202; 81001; 82140; 85007; 85025; 85027; 86140; 86850; 86900; 86901; 86920; 87040; 87075; 87076; 87086; 87116; 87186; 88304; 88305; 88311; 93005; 93010; J0692; J1100; J1953; J1956; J2001; J2250; J2270; J2370; J2405; J2543; J2704; J2710; J3010; J3370; J7030; J7040; J7050; P9016; P9045; Q9967